=== PATIENT | male | born 1975 | race Caucasian/White ===

== ENCOUNTER 2017-05-27 02:51 | Inpatient (IN) | payer MEDICAID ==
[2017-05-27] MEDS ORDERED: NOREPINEPHRINE/NS 4 MG/500 ML BAG IV ONE (03:09)
[2017-05-27 03:10] LABS: ABSOLUTE NRBC COUNT 0.13 10^3/uL (0-0.01); ADD DIFF? YES; ADD SCAN? NO; ATYPICAL LYMPHOCYTE FLAG 50 (0-99); FRAGMENT RBC FLAG 0 (0-99); HEMATOCRIT 42.3 % (40.0-51.0); HEMOGLOBIN 13.4 g/dL (13.7-17.5); LEFT SHIFT FLG 80 (0-99); LIPEMIA HEMOLYSIS FLAG 80 (0-99); MEAN CELL HEMOGLOBIN 31.8 pg (27.9-34.1); MEAN CELL HEMOGLOBIN CONCENTR. 31.7 g/dL (32.4-36.7); MEAN CELL VOLUME 100.2 fL (81.5-99.8); MEAN PLATELET VOLUME 11.7 fL (8.7-11.7); PLATELET CLUMPS FLAG 0 (0-99); PLATELET COUNT 113 10^3/uL (150-400); RED BLOOD CELL COUNT 4.22 10^6/uL (4.40-6.38); RED CELL DISTRIBUTION WIDTH 19.5 % (11.5-15.2)
[2017-05-27] MEDS ORDERED: NOREPINEPHRINE 4 MG/4 ML INJ IV ONE (03:12)
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
[2017-05-27 03:21] LABS: NRBC-AUTO% 1.2 % (0.0-0.2)
[2017-05-27 03:22] LABS: ADD MORPH? NO; INR 1.73 (0.83-1.16); PROTIME(PATIENT) 20.3 SEC (12.0-15.0)
[2017-05-27 03:31] LABS: ANION GAP 19 mEq/L (8-16); CALCIUM 7.6 mg/dL (8.5-10.4); CARBON DIOXIDE 16 mEq/l (22-31); CHLORIDE 118 mEq/L (97-110); GLOMERULAR FILTRATION RATE > 60; GLUCOSE 101 mg/dL (70-100); POTASSIUM 4.6 mEq/L (3.5-5.2); SODIUM 153 mEq/L (134-144)
[2017-05-27 03:38] LABS: ETHANOL SERUM 379 mg/dL (0-10)
[2017-05-27 03:42] LABS: TROPONIN I 0.013 ng/mL (0-0.034)
[2017-05-27 03:49] LABS: BASE EXCESS -12.7 mEq/L (-2.5-2.5); BICARBONATE 15 mEq/L (22-26); MEASURED OXYGEN SATURATION 99 % (92-95); PCO2 41 mmHg (34-38); PO2 204 mmHg (65-75); TCO2 16 mEq/L (23-27)
[2017-05-27 03:50] LABS: O2 CONCENTRATIION 100 % (0-100); P/F RATIO 204 RATIO; PATIENT RATE 16; PIP 19; PRESSURE SUPPORT 7; SIMV YES
[2017-05-27] MEDS ORDERED: NA BICARBONATE 50 MEQ/50 ML VIAL ONE (03:53)
[2017-05-27] MEDS ORDERED: EPINEPHrine 1 MG/10 ML SYR IVP ONE ×3 (04:01→08:06)
[2017-05-27 04:02] LABS: ADD DIFF? YES; ADD MORPH? NO; ADD SCAN? NO; ATYPICAL LYMPHOCYTE FLAG 30 (0-99); FRAGMENT RBC FLAG 0 (0-99); HEMATOCRIT 30.7 % (40.0-51.0); HEMOGLOBIN 10.3 g/dL (13.7-17.5); LEFT SHIFT FLG 70 (0-99); LIPEMIA HEMOLYSIS FLAG 80 (0-99); MEAN CELL HEMOGLOBIN 32.3 pg (27.9-34.1); MEAN CELL HEMOGLOBIN CONCENTR. 33.6 g/dL (32.4-36.7); MEAN CELL VOLUME 96.2 fL (81.5-99.8); MEAN PLATELET VOLUME 11.7 fL (8.7-11.7); PLATELET CLUMPS FLAG 0 (0-99); PLATELET COUNT 89 10^3/uL (150-400); RED BLOOD CELL COUNT 3.19 10^6/uL (4.40-6.38); RED CELL DISTRIBUTION WIDTH 18.6 % (11.5-15.2)
[2017-05-27] MEDS ORDERED: SODIUM BICARBONATE 50 MEQ/50 ML SYR IVP ONE ×3 (04:02→04:04)
[2017-05-27] MEDS ORDERED: NOREPINEPHRINE/NS 500 ML IV ONE (04:04)
[2017-05-27 04:38] LABS: BASE EXCESS -8.8 mEq/L (-2.5-2.5); BICARBONATE 16 mEq/L (22-26); MEASURED OXYGEN SATURATION 99 % (92-95); PCO2 33 mmHg (34-38); PO2 150 mmHg (65-75); TCO2 17 mEq/L (23-27)
[2017-05-27 04:40] LABS: END TIDAL CO2 40; O2 CONCENTRATIION 85 % (0-100); P/F RATIO 176 RATIO; PATIENT RATE 16; PRESSURE SUPPORT 7; SIMV YES
--- NOTE | 2017-05-27 04:45 | CPEKG ---
Heart Rate: 112 RR Interval: 536 P-R Interval: 132 QRSD Interval: 92 QT Interval: 364 QTC Interval: 497 P [place]: 59 QRS [place]: 56 T Wave [place]: 45 EKG Severity - BORDERLINE ECG - EKG Impression: SINUS TACHYCARDIA EKG Impression: BORDERLINE PROLONGED QT INTERVAL Electronically Signed By: Isaiah Young 27-May-2017 04:48:56
[2017-05-27] MEDS ORDERED: PHYTONADIONE 10 MG in NS 50 ML IV ONE (04:49)
[2017-05-27] MEDS ORDERED: TRANEXAMIC ACID 1,000 MG in NS 100 ML IV ONE (04:51)
[2017-05-27] MEDS ORDERED: NALOXONE HCL 0.4 MG/ML INJ IVP PRN (04:52)
[2017-05-27] MEDS: VASOPRESSIN/DEXTROSE 250 ML IV SCH ×2 (05:00→17:39)
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
[2017-05-27] MEDS: D5W 1/2 NS W/ 20 KCl/L 1,000 ML IV SCH ×3 (05:17→23:38)
[2017-05-27 05:21] LABS: PLATELET ESTIMATE DECREASED (ADEQ)
[2017-05-27 05:24] LABS: POLYCHROMASIA 1+
[2017-05-27] MEDS ORDERED: NS 1,000 ML IV ONE ×3 (05:26→05:27)
[2017-05-27 05:32] LABS: PLATELET ESTIMATE DECREASED (ADEQ)
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
[2017-05-27 06:25] LABS: BASE EXCESS -8.9 mEq/L (-2.5-2.5); BICARBONATE 16 mEq/L (22-26); IONIZED CALCIUM 0.78 MMOL/L (1.12-1.30); MEASURED OXYGEN SATURATION 99 % (92-95); O2 CONCENTRATIION 85 % (0-100); P/F RATIO 199 RATIO; PCO2 30 mmHg (34-38); PO2 169 mmHg (65-75); SIMV YES; TCO2 17 mEq/L (23-27)
[2017-05-27 06:26] LABS: END TIDAL CO2 25; PATIENT RATE 16; PIP 18.6; PRESSURE SUPPORT 7
[2017-05-27 06:37] LABS: INR 2.34 (0.83-1.16); PROTIME(PATIENT) 25.9 SEC (12.0-15.0)
[2017-05-27 06:38] LABS: APTT 66.2 SEC (23.0-38.0)
[2017-05-27 06:39] LABS: ALANINE AMINOTRANSFERASE 176 IU/L (21-72); ALBUMIN 1.9 g/dL (3.5-5.0); ALKALINE PHOSPHATASE 85 IU/L (38-126); ANION GAP 15 mEq/L (8-16); ASPARTATE AMINOTRANSFERASE 314 IU/L (17-59); BILIRUBIN,TOTAL 1.1 mg/dL (0.1-1.4); CARBON DIOXIDE 16 mEq/l (22-31); CHLORIDE 120 mEq/L (97-110); CREATININE 1.1 mg/dL (0.7-1.3); GLOMERULAR FILTRATION RATE > 60; GLUCOSE 158 mg/dL (70-100); MAGNESIUM 1.7 mg/dL (1.6-2.3); POTASSIUM 4.4 mEq/L (3.5-5.2); SODIUM 151 mEq/L (134-144); TOTAL PROTEIN 3.9 g/dL (6.3-8.2)
[2017-05-27 06:43] LABS: CALCIUM 5.9 mg/dL (8.5-10.4)
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
[2017-05-27] MEDS: PHENYLEPHRINE HCL 50 MG in D5W 250 ML IV SCH ×4 (07:44→21:00)
[2017-05-27] MEDS ORDERED: SODIUM BICARBONATE 50 MEQ/50 ML SYR ONE (08:06)
[2017-05-27] MEDS ORDERED: CALCIUM GLUCONATE 2 GM in D5W 50 ML IV ONE (09:33)
--- NOTE | 2017-05-27 10:40 | SOAPPROG ---
SHAGUFTA Progress Note Assessment/Plan: Assessment: tried to call grandmother sixto tobin. left message for her to call ICU and speak with either me or Dr. Daily Plan: 05/27/17 10:39 Objective: Vital Signs Temp Pulse Resp BP Pulse Ox 36.1 C 123 H 16 109/63 100 05/27/17 09:00 05/27/17 10:00 05/27/17 10:00 05/27/17 10:00 05/27/17 10:00 Laboratory Results 05/27/17 08:55 05/27/17 06:10 05/26/17 05/27/17 05/28/17 05:59 05:59 05:59 Intake Total 3770 1332.5 Output Total 400 100 Balance 3370 1232.5 PT 25.9 SEC (12.0-15.0) H 05/27/17 06:10 INR 2.34 (0.83-1.16) H 05/27/17 06:10 ICD10 Worksheet Patient Problems: Problems Problem Status Onset Cardiopulmonary arrest Acute Head trauma Acute Neurogenic shock Acute Skull fracture Acute Traumatic subarachnoid hemorrhage Acute
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
--- NOTE | 2017-05-27 11:42 | GPN ---
[f rep st] PROCEDURE NOTE DATE OF PROCEDURE: 05/27/2017 NAME OF PROCEDURE: Right femoral arterial line placement. DESCRIPTION OF PROCEDURE: The patient was prepped and draped in the usual sterile fashion. A direc t stick was made in the right femoral artery. Guidewire was introduced. An arterial line catheter was passed over the guidewire and secured in place with silk suture and it was then connected to the monitor. /[id number]/MODL
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
[2017-05-27] MEDS: NOREPINEPHRINE/NS 500 ML IV SCH ×5 (11:52→23:38)
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
[2017-05-28] MEDS: NOREPINEPHRINE/NS 500 ML IV SCH ×3 (01:30→17:38)
[2017-05-28] MEDS: PHENYLEPHRINE HCL 50 MG in D5W 250 ML IV SCH (04:45)
[2017-05-28 05:19] LABS: ADD DIFF? YES; ADD MORPH? NO; ATYPICAL LYMPHOCYTE FLAG 0 (0-99); FRAGMENT RBC FLAG 30 (0-99); HEMATOCRIT 26.2 % (40.0-51.0); HEMOGLOBIN 9.1 g/dL (13.7-17.5); LEFT SHIFT FLG 50 (0-99); LIPEMIA HEMOLYSIS FLAG 90 (0-99); MEAN CELL HEMOGLOBIN 31.8 pg (27.9-34.1); MEAN CELL HEMOGLOBIN CONCENTR. 34.7 g/dL (32.4-36.7); MEAN CELL VOLUME 91.6 fL (81.5-99.8); MEAN PLATELET VOLUME 12.9 fL (8.7-11.7); PLATELET CLUMPS FLAG 0 (0-99); PLATELET COUNT 90 10^3/uL (150-400); RED BLOOD CELL COUNT 2.86 10^6/uL (4.40-6.38); RED CELL DISTRIBUTION WIDTH 19.7 % (11.5-15.2)
[2017-05-28 05:33] LABS: INR 2.53 (0.83-1.16); PROTIME(PATIENT) 27.5 SEC (12.0-15.0)
[2017-05-28 05:34] LABS: ALBUMIN 1.7 g/dL (3.5-5.0); ALKALINE PHOSPHATASE 83 IU/L (38-126); ANION GAP 6 mEq/L (8-16); APTT 36.1 SEC (23.0-38.0); CALCIUM 6.1 mg/dL (8.5-10.4); CARBON DIOXIDE 21 mEq/l (22-31); CHLORIDE 123 mEq/L (97-110); CREATININE 0.7 mg/dL (0.7-1.3); GLOMERULAR FILTRATION RATE > 60; GLUCOSE 134 mg/dL (70-100); MAGNESIUM 1.6 mg/dL (1.6-2.3); SODIUM 150 mEq/L (134-144); TOTAL PROTEIN 4.1 g/dL (6.3-8.2)
[2017-05-28 05:40] LABS: ADD SCAN? NO
[2017-05-28 05:45] LABS: ALANINE AMINOTRANSFERASE 1643 IU/L (21-72)
[2017-05-28 05:58] LABS: PLATELET ESTIMATE DECREASED (ADEQ)
[2017-05-28 05:59] LABS: HYPOCHROMIA 1+; KERATOCYTES 1+; POLYCHROMASIA 2+
[2017-05-28 06:05] LABS: ASPARTATE AMINOTRANSFERASE 3494 IU/L (17-59)
[2017-05-28 06:19] LABS: BILIRUBIN-CONJUGATED 1.6 mg/dL (0.0-0.5); BILIRUBIN-UNCONJUGATED 1.4 mg/dL (0.0-1.1)
[2017-05-28 07:49] LABS: BASE EXCESS -5.5 mEq/L (-2.5-2.5); BICARBONATE 19 mEq/L (22-26); MEASURED OXYGEN SATURATION 96 % (92-95); PCO2 30 mmHg (34-38); PO2 72 mmHg (65-75); TCO2 20 mEq/L (23-27)
[2017-05-28 07:50] LABS: O2 CONCENTRATIION 60 % (0-100); P/F RATIO 120 RATIO; SIMV YES
[2017-05-28 07:51] LABS: END TIDAL CO2 21; PATIENT RATE 12; PRESSURE SUPPORT 7
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
[2017-05-28] MEDS: PHENYLEPHRINE HCL IV SCH ×2 (08:38→17:37)
[2017-05-28] MEDS: D5W IV SCH ×2 (08:38→17:37)
[2017-05-28] MEDS: D5W 1/2 NS W/ 20 KCl/L 1,000 ML IV SCH ×2 (14:18→21:33)
[2017-05-28 14:49] LABS: CALCULATED OXYGEN SATURATION 100 % (92-95); O2 CONCENTRATIION 100 % (0-100)
--- NOTE | 2017-05-28 15:11 | PDINTPN ---
Commercial Manager Progress Note Assessment/Plan: Formal apnea test. This was performed at approximately 2:50 p.m.. The patient was pre oxygen aided with 100% FiO2 for 10 minutes. His temperature was 36 degrees. He was hemodynamically stable. He was removed from ventilatory support and a T-piece placed on the end of his endotracheal tube. 100% oxygen was delivered flow by. He remained hemodynamically stable throughout. Oxygen saturations were 97% or above throughout the test. Blood pressure dropped slightly towards the end of the test. At 10 minutes there was no evidence of any respiratory efforts and no evidence of any airflow from the patient's endotracheal tube. Arterial blood gas at the end showed a pH is 7.07, pCO2 of 72 and a PO2 of 82. This was compared to the blood gas prior to removal of ventilatory support. At that time the pH was 7.32, pCO2 40 and PO2 242 on 100% FiO2. Assessment: Positive apnea test indicating brain . Objective: Vital Signs Temp Pulse Resp BP Pulse Ox 36.3 C 94 12 93/46 L 99 05/28/17 14:25 05/28/17 14:25 05/28/17 14:25 05/28/17 14:25 05/28/17 14:25 Microbiology 05/28/17 08:30 - Final Sputum, Induced/Suctioned Laboratory Results 05/28/17 04:45 05/28/17 04:45 05/27/17 05/28/17 05/29/17 05:59 05:59 05:59 Intake Total 3770 9644.5 Output Total 400 2325 880 Balance 3370 7319.5 -880 PT 27.5 SEC (12.0-15.0) H 05/28/17 04:45 INR 2.53 (0.83-1.16) H 05/28/17 04:45 ICD10 Worksheet Patient Problems: Problems Problem Status Onset Cardiopulmonary arrest Acute Head trauma Acute Neurogenic shock Acute Skull fracture Acute Traumatic subarachnoid hemorrhage Acute
[2017-05-28 15:13] LABS: CALCULATED OXYGEN SATURATION 90 % (92-95); O2 CONCENTRATIION 98 % (0-100)
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
[2017-05-28] MEDS: VASOPRESSIN/DEXTROSE 250 ML IV SCH (16:50)
[2017-05-28] MEDS ORDERED: ALBUMIN 5% 500 ML IV ONE ×2 (17:40→18:00)
[2017-05-28] MEDS ORDERED: NS 1,000 ML IV ONE (17:41)
[2017-05-28] MEDS ORDERED: NS 1,000 ML IV PRN (17:41)
[2017-05-28] MEDS ORDERED: ALBUMIN 5% 500 ML BOTTLE IV ONE (17:43)
[2017-05-28] MEDS ORDERED: NS 500 ML IV PRN (17:45)
[2017-05-29 01:02] LABS: HEMATOCRIT 17.9 % (40.0-51.0); MEAN CELL HEMOGLOBIN 32.3 pg (27.9-34.1); MEAN CELL HEMOGLOBIN CONCENTR. 34.1 g/dL (32.4-36.7); MEAN CELL VOLUME 94.7 fL (81.5-99.8); RED BLOOD CELL COUNT 1.89 10^6/uL (4.40-6.38)
[2017-05-29 01:03] LABS: HEMOGLOBIN 6.1 g/dL (13.7-17.5)
[2017-05-29 01:04] LABS: RED CELL DISTRIBUTION WIDTH 20.2 % (11.5-15.2)
[2017-05-29 01:20] LABS: ALBUMIN 1.7 g/dL (3.5-5.0); ALKALINE PHOSPHATASE 60 IU/L (38-126); BILIRUBIN,TOTAL 2.3 mg/dL (0.1-1.4); BILIRUBIN-CONJUGATED 1.2 mg/dL (0.0-0.5); BILIRUBIN-UNCONJUGATED 1.1 mg/dL (0.0-1.1); MAGNESIUM 1.5 mg/dL (1.6-2.3); TOTAL PROTEIN 3.6 g/dL (6.3-8.2)
[2017-05-29 01:38] LABS: ALANINE AMINOTRANSFERASE 1057 IU/L (21-72); ASPARTATE AMINOTRANSFERASE 1625 IU/L (17-59)
[2017-05-29] MEDS ORDERED: PROTOCOL MAGNESIUM 1 DOSE IV PRN (01:39)
[2017-05-29] MEDS ORDERED: PROTOCOL CALCIUM 1 DOSE IV PRN (01:39)
[2017-05-29] MEDS ORDERED: PROTOCOL POTASSIUM 1 DOSE MISC PRN (01:39)
[2017-05-29] MEDS ORDERED: PROTOCOL K PHOSPHATE 1 DOSE IV PRN (01:39)
[2017-05-29 01:54] LABS: ANION GAP 5 mEq/L (8-16); CARBON DIOXIDE 20 mEq/l (22-31); CHLORIDE 124 mEq/L (97-110); CREATININE 0.6 mg/dL (0.7-1.3); GLOMERULAR FILTRATION RATE > 60; GLUCOSE 165 mg/dL (70-100); POTASSIUM 4.4 mEq/L (3.5-5.2); SODIUM 149 mEq/L (134-144)
[2017-05-29] MEDS ORDERED: CALCIUM GLUCONATE 2 GM in NS 50 ML IV ONE (02:12)
[2017-05-29] MEDS ORDERED: MAGNESIUM SULF 1 GM/DEXTROSE 100 ML IV ONE ×2 (02:12→06:16)
[2017-05-29] MEDS: PHENYLEPHRINE HCL IV SCH (02:46)
[2017-05-29] MEDS: D5W IV SCH (02:46)
[2017-05-29 03:50] LABS: HEMATOCRIT 22.2 % (40.0-51.0); HEMOGLOBIN 7.6 g/dL (13.7-17.5); LIPEMIA HEMOLYSIS FLAG 90 (0-99); MEAN CELL HEMOGLOBIN 32.1 pg (27.9-34.1); MEAN CELL HEMOGLOBIN CONCENTR. 34.2 g/dL (32.4-36.7); MEAN CELL VOLUME 93.7 fL (81.5-99.8); PLATELET CLUMPS FLAG 20 (0-99); PLATELET COUNT 42 10^3/uL (150-400); RED BLOOD CELL COUNT 2.37 10^6/uL (4.40-6.38); RED CELL DISTRIBUTION WIDTH 18.4 % (11.5-15.2)
[2017-05-29 04:28] LABS: PLATELET ESTIMATE DECREASED (ADEQ)
[2017-05-29] MEDS: D5W 1/2 NS W/ 20 KCl/L 1,000 ML IV SCH ×3 (04:28→17:24)
[2017-05-29] MEDS: VASOPRESSIN/DEXTROSE 250 ML IV SCH ×2 (04:28→14:05)
[2017-05-29 05:37] LABS: ANION GAP 6 mEq/L (8-16); CALCIUM 6.5 mg/dL (8.5-10.4); CARBON DIOXIDE 20 mEq/l (22-31); CHLORIDE 122 mEq/L (97-110); CREATININE 0.6 mg/dL (0.7-1.3); GLOMERULAR FILTRATION RATE > 60; GLUCOSE 165 mg/dL (70-100); MAGNESIUM 1.8 mg/dL (1.6-2.3); POTASSIUM 4.5 mEq/L (3.5-5.2); SODIUM 148 mEq/L (134-144)
[2017-05-29 05:58] LABS: IONIZED CALCIUM 0.98 MMOL/L (1.12-1.30)
[2017-05-29 06:00] LABS: PLATELET COUNT 77 10^3/uL (150-400)
[2017-05-29 06:12] VITALS: RESP 12
[2017-05-29] MEDS ORDERED: CALCIUM GLUCONATE 50 ML IV ONE (06:16)
[2017-05-29 06:19] LABS: INR 1.94 (0.83-1.16); PROTIME(PATIENT) 22.3 SEC (12.0-15.0)
[2017-05-29 06:20] LABS: APTT 33.7 SEC (23.0-38.0)
[2017-05-29 06:25] LABS: FIBRINOGEN 134 mg/dL (214-456)
[2017-05-29 07:36] LABS: ABSOLUTE NRBC COUNT 0.03 10^3/uL (0-0.01); ADD DIFF? YES; ADD MORPH? NO; ADD SCAN? NO; ATYPICAL LYMPHOCYTE FLAG 0 (0-99); FRAGMENT RBC FLAG 0 (0-99); HEMATOCRIT 23.6 % (40.0-51.0); LEFT SHIFT FLG 30 (0-99); LIPEMIA HEMOLYSIS FLAG 90 (0-99); MEAN CELL HEMOGLOBIN 31.7 pg (27.9-34.1); MEAN CELL HEMOGLOBIN CONCENTR. 33.9 g/dL (32.4-36.7); MEAN CELL VOLUME 93.7 fL (81.5-99.8); MEAN PLATELET VOLUME 12.3 fL (8.7-11.7); NRBC-AUTO% 0.1 % (0.0-0.2); PLATELET CLUMPS FLAG 0 (0-99); PLATELET COUNT 61 10^3/uL (150-400); RED BLOOD CELL COUNT 2.52 10^6/uL (4.40-6.38); RED CELL DISTRIBUTION WIDTH 17.6 % (11.5-15.2)
[2017-05-29 07:40] LABS: BASE EXCESS -5.1 mEq/L (-2.5-2.5); BICARBONATE 20 mEq/L (22-26); MEASURED OXYGEN SATURATION 99 % (92-95); PCO2 38 mmHg (34-38); PO2 117 mmHg (65-75); TCO2 21 mEq/L (23-27)
[2017-05-29 07:42] LABS: O2 CONCENTRATIION 100 % (0-100); P/F RATIO 117 RATIO; SIMV YES
[2017-05-29 08:35] LABS: PLATELET ESTIMATE DECREASED (ADEQ)
[2017-05-29 08:37] LABS: POLYCHROMASIA 1+
[2017-05-29 08:38] LABS: KERATOCYTES 1+; TOXIC GRANULATION PRESENT
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
[2017-05-29 10:06] LABS: HEMATOCRIT 23.2 % (40.0-51.0); MEAN CELL HEMOGLOBIN 32.1 pg (27.9-34.1); MEAN CELL HEMOGLOBIN CONCENTR. 34.5 g/dL (32.4-36.7); MEAN CELL VOLUME 93.2 fL (81.5-99.8); RED BLOOD CELL COUNT 2.49 10^6/uL (4.40-6.38); RED CELL DISTRIBUTION WIDTH 17.9 % (11.5-15.2)
[2017-05-29 10:20] LABS: INR 1.73 (0.83-1.16); PROTIME(PATIENT) 20.3 SEC (12.0-15.0)
[2017-05-29 11:53] LABS: POTASSIUM 4.4 mEq/L (3.5-5.2)
[2017-05-29] MEDS ORDERED: K PHOS 15 MMOL in D5W 250 ML IV ONE (12:00)
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
[2017-05-29 15:53] LABS: HEMATOCRIT 23.9 % (40.0-51.0); HEMOGLOBIN 8.2 g/dL (13.7-17.5); MEAN CELL HEMOGLOBIN CONCENTR. 34.3 g/dL (32.4-36.7); MEAN CELL VOLUME 93.4 fL (81.5-99.8); RED BLOOD CELL COUNT 2.56 10^6/uL (4.40-6.38); RED CELL DISTRIBUTION WIDTH 18.2 % (11.5-15.2)
[2017-05-29 17:05] VITALS: O2SAT 100
[2017-05-29 18:47] LABS: POTASSIUM 4.4 mEq/L (3.5-5.2)
[2017-05-29 21:12] VITALS: PULSE 73
[2017-05-29 21:13] VITALS: BP 139/74
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
[2017-05-29 22:13] VITALS: TEMP 98.4
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
== END 2017-05-29 22:52 | disposition expired | DRG 84 ==
LOC: EDBD 03:55 → EEVIPCON 03:55 → F2N 05:11
PROVIDERS: ADMIT Surgery; ATTEND Internal Medicine Pulmonary Disease
PROC: 5A12012 Performance of Cardiac Output, Single, Manual (ICD-10-PCS; principal; 2017-05-27)
PROC: 30233N1 Transfusion of Nonautologous Red Blood Cells into Peripheral Vein, Percutaneous Approach (ICD-10-PCS; principal; 2017-05-27)
PROC: 5A1945Z Respiratory Ventilation, 24-96 Consecutive Hours (ICD-10-PCS; principal; 2017-05-27)
PROC: 0BH18EZ Insertion of Endotracheal Airway into Trachea, Via Natural or Artificial Opening Endoscopic (ICD-10-PCS; principal; 2017-05-27)
PROC: 5A2204Z Restoration of Cardiac Rhythm, Single (ICD-10-PCS; principal; 2017-05-27)
PROC: 0HQ0XZZ Repair Scalp Skin, External Approach (ICD-10-PCS; 2017-05-27)
PROC: 02HV33Z Insertion of Infusion Device into Superior Vena Cava, Percutaneous Approach (ICD-10-PCS; 2017-05-27)
DX: I46.9 Cardiac arrest, cause unspecified; S02.19XA Other fracture of base of skull, initial encounter for closed fracture; S01.81XA Laceration without foreign body of other part of head, initial encounter; S01.311A Laceration without foreign body of right ear, initial encounter; R40.2432 Glasgow coma scale score 3-8, at arrival to emergency department; X58.XXXA Exposure to other specified factors, initial encounter; Y92.414 Local residential or business street as the place of occurrence of the external cause
CPT/HCPCS: 80305; 96374; G0480; J0610; J0690; J2370; J3430; J3475; L0172; P9016; P9017; P9021; P9035; P9041

== ENCOUNTER 2017-05-29 22:52 | Inpatient (IN) | payer OTHER ==
[2017-05-29] MEDS: D5W 1/2 NS W/ 20 KCl/L 1,000 ML IV SCH (23:00)
[2017-05-30] MEDS ORDERED: PHENYLEPHRINE HCL IV SCH (01:00)
[2017-05-30] MEDS ORDERED: D5W IV SCH (01:00)
[2017-05-30] MEDS ORDERED: VASOPRESSIN/DEXTROSE 250 ML IV SCH (01:00)
[2017-05-30] MEDS ORDERED: methylPREDNISolone SOD SUCC 2 GM in D5W 100 ML IV ONE (03:15)
[2017-05-30] MEDS ORDERED: VECURONIUM BROMIDE 10 MG VIAL IVP ONE (03:15)
[2017-05-30] MEDS ORDERED: NALOXONE HCL 4 MG/10 ML MDV IVP ONE (03:15)
[2017-05-30] MEDS ORDERED: LEVOTHYROXINE 100 MCG/5 ML SYR IVP ONE (03:15)
[2017-05-30] MEDS ORDERED: D50W 25 GM/50 ML SYR IVP ONE (03:15)
[2017-05-30] MEDS ORDERED: INSULIN REGULAR HUMAN 100 UNIT/ML IVP ONE (03:15)
[2017-05-30] MEDS ORDERED: NALOXONE HCL 2 MG/2 ML SYR IVP ONE (03:30)
[2017-05-30] MEDS: IPRATROPIUM/ALBUTEROL 3 ML DEYVIAL IH SCH ×6 (03:33→23:51)
[2017-05-30] MEDS: LEVOTHYROXINE 200 MCG in NS 500 ML IV SCH ×2 (04:15→11:32)
[2017-05-30 05:07] LABS: ABSOLUTE NRBC COUNT 0.02 10^3/uL (0-0.01); ADD DIFF? YES; ADD MORPH? NO; ADD SCAN? NO; ATYPICAL LYMPHOCYTE FLAG 0 (0-99); FRAGMENT RBC FLAG 0 (0-99); HEMATOCRIT 22.6 % (40.0-51.0); HEMOGLOBIN 7.6 g/dL (13.7-17.5); LEFT SHIFT FLG 30 (0-99); LIPEMIA HEMOLYSIS FLAG 80 (0-99); MEAN CELL HEMOGLOBIN 32.1 pg (27.9-34.1); MEAN CELL HEMOGLOBIN CONCENTR. 33.6 g/dL (32.4-36.7); MEAN CELL VOLUME 95.4 fL (81.5-99.8); MEAN PLATELET VOLUME 13.4 fL (8.7-11.7); NRBC-AUTO% 0.1 % (0.0-0.2); PLATELET CLUMPS FLAG 10 (0-99); RED BLOOD CELL COUNT 2.37 10^6/uL (4.40-6.38); RED CELL DISTRIBUTION WIDTH 18.4 % (11.5-15.2)
[2017-05-30] MEDS: PETROLAT,WHT/MIN OIL/SOD CHL 3.5 GM OPHT.OINT EACHEYE PRN ×2 (05:08→10:55)
[2017-05-30 05:12] LABS: PLATELET COUNT 47 10^3/uL (150-400)
[2017-05-30 05:14] LABS: COLOR AMBER; LEUKOCYTE ESTERASE,URINE NEGATIVE (NEGATIVE); NITRITE,URINE NEGATIVE (NEGATIVE)
[2017-05-30 05:20] LABS: ALANINE AMINOTRANSFERASE 742 IU/L (21-72); ALKALINE PHOSPHATASE 73 IU/L (38-126); AMYLASE 83 IU/L (30-110); ANION GAP 6 mEq/L (8-16); BILIRUBIN,TOTAL 2.1 mg/dL (0.1-1.4); BILIRUBIN-CONJUGATED 1.1 mg/dL (0.0-0.5); CALCIUM 6.7 mg/dL (8.5-10.4); CARBON DIOXIDE 20 mEq/l (22-31); CHLORIDE 119 mEq/L (97-110); CREATININE 0.6 mg/dL (0.7-1.3); GAMMA-GLUTAMYLTRANSFERASE 130 IU/L (10-59); GLOMERULAR FILTRATION RATE > 60; GLUCOSE 121 mg/dL (70-100); LACTATE DEHYDROGENASE 1304 IU/L (313-618); MAGNESIUM 1.9 mg/dL (1.6-2.3); POTASSIUM 4.1 mEq/L (3.5-5.2); SODIUM 145 mEq/L (134-144)
[2017-05-30 05:27] LABS: APTT 31.1 SEC (23.0-38.0); INR 1.73 (0.83-1.16); PROTIME(PATIENT) 20.3 SEC (12.0-15.0)
[2017-05-30 05:31] LABS: TROPONIN I 0.337 ng/mL (0-0.034)
[2017-05-30 05:39] LABS: ASPARTATE AMINOTRANSFERASE 803 IU/L (17-59)
[2017-05-30 05:47] LABS: KERATOCYTES 1+; POLYCHROMASIA 1+
[2017-05-30 05:48] LABS: PLATELET ESTIMATE DECREASED (ADEQ)
[2017-05-30 05:50] LABS: CK-MB INTERPRETATION NEGATIVE (NEGATIVE)
[2017-05-30] MEDS ORDERED: CALCIUM CHLORIDE 1 GM/10 ML INJ IV ONE (07:00)
[2017-05-30] MEDS ORDERED: NS IV ONE (07:00)
[2017-05-30] MEDS ORDERED: SODIUM PHOS IV ONE (07:00)
[2017-05-30 08:12] VITALS: RESP 16
[2017-05-30] MEDS ORDERED: DOPamine/DEXTROSE/250 ML BAG IV ONE (09:01)
--- NOTE | 2017-05-30 09:07 | CPEKG ---
Heart Rate: 77 RR Interval: 779 P-R Interval: 136 QRSD Interval: 86 QT Interval: 384 QTC Interval: 435 P [place]: 20 QRS [place]: 48 T Wave [place]: 87 EKG Severity - BORDERLINE ECG - EKG Impression: SINUS RHYTHM EKG Impression: BORDERLINE T WAVE ABNORMALITIES Electronically Signed By: Parish Choudhury 30-May-2017 10:04:37
--- NOTE | 2017-05-30 10:31 | SOAPPROG ---
SOAP Progress Note Assessment/Plan: Late Entry for time of procedure on 05/28/17 at 1538 Cold caloric test done with Dr Valladares that showed no eye movement after 50 cc of ice water instilled in External Auditory Canal. Paperwork filled out and signed at the time. See paper hardcopy signed by Dr Valladares. 05/30/17 10:28 Objective: Vital Signs Temp Pulse Resp BP Pulse Ox 36.9 C 75 16 117/63 99 05/30/17 10:00 05/30/17 10:00 05/30/17 10:00 05/30/17 10:00 05/30/17 10:00 Microbiology 05/30/17 03:55 - Final Sputum, Induced/Suctioned Laboratory Results 05/30/17 04:45 05/30/17 04:45 05/29/17 05/30/17 05/31/17 05:59 05:59 05:59 Intake Total 2386.9 350 Output Total 711 1075 Balance 1675.9 -725 PT 20.3 SEC (12.0-15.0) H 05/30/17 04:45 INR 1.73 (0.83-1.16) H 05/30/17 04:45 ICD10 Worksheet Patient Problems: Problems Problem Status Onset Cardiopulmonary arrest Acute Head trauma Acute Neurogenic shock Acute Skull fracture Acute Traumatic subarachnoid hemorrhage Acute
[2017-05-30] MEDS: methylPREDNISolone SOD SUCC 1 GM in D5W 100 ML IV SCH ×2 (11:09→19:21)
[2017-05-30 12:34] LABS: ABSOLUTE IMMATURE GRANULOCYTES 0.21 10^3/uL (0.00-0.10); ABSOLUTE NRBC COUNT 0.03 10^3/uL (0-0.01); ADD DIFF? NO; ADD MORPH? NO; ADD SCAN? NO; ATYPICAL LYMPHOCYTE FLAG 0 (0-99); FRAGMENT RBC FLAG 0 (0-99); HEMATOCRIT 25.5 % (40.0-51.0); HEMOGLOBIN 8.8 g/dL (13.7-17.5); LEFT SHIFT FLG 50 (0-99); LIPEMIA HEMOLYSIS FLAG 90 (0-99); MEAN CELL HEMOGLOBIN 32.1 pg (27.9-34.1); MEAN CELL HEMOGLOBIN CONCENTR. 34.5 g/dL (32.4-36.7); MEAN CELL VOLUME 93.1 fL (81.5-99.8); MEAN PLATELET VOLUME 13.6 fL (8.7-11.7); NRBC-AUTO% 0.3 % (0.0-0.2); PLATELET CLUMPS FLAG 0 (0-99); RED BLOOD CELL COUNT 2.74 10^6/uL (4.40-6.38); RED CELL DISTRIBUTION WIDTH 17.8 % (11.5-15.2)
[2017-05-30 12:36] LABS: PLATELET COUNT 41 10^3/uL (150-400)
[2017-05-30 12:41] LABS: APTT 30.3 SEC (23.0-38.0); INR 1.64 (0.83-1.16); PROTIME(PATIENT) 19.5 SEC (12.0-15.0)
[2017-05-30 12:55] LABS: ALANINE AMINOTRANSFERASE 697 IU/L (21-72); ALKALINE PHOSPHATASE 70 IU/L (38-126); ANION GAP 5 mEq/L (8-16); ASPARTATE AMINOTRANSFERASE 697 IU/L (17-59); BILIRUBIN,TOTAL 3.4 mg/dL (0.1-1.4); BILIRUBIN-CONJUGATED 1.5 mg/dL (0.0-0.5); BILIRUBIN-UNCONJUGATED 1.9 mg/dL (0.0-1.1); CALCIUM 8.4 mg/dL (8.5-10.4); CARBON DIOXIDE 20 mEq/l (22-31); CHLORIDE 122 mEq/L (97-110); CREATININE 0.6 mg/dL (0.7-1.3); GLOMERULAR FILTRATION RATE > 60; GLUCOSE 115 mg/dL (70-100); MAGNESIUM 1.8 mg/dL (1.6-2.3); POTASSIUM 4.7 mEq/L (3.5-5.2); SODIUM 147 mEq/L (134-144); TOTAL PROTEIN 4.3 g/dL (6.3-8.2)
--- NOTE | 2017-05-30 13:09 | ECHO ---
[id number] + + [address] : : [place] [address] : : [phone] + + Adult Echocardiographic Report + + :Name: MINH HAAS 1871Study Date: 05/30/2017 11:28 AM : : Hospital Admission Number: [id number] L ocation: 251: :: 1975 Gender: Male : :Age: 41 yrs Race: WH : :Reason For Study: Donor/Eval LV function : + + MMode/2D Measurements \T\ Calculations IVSd: 0.73 cm LVIDd: 5.0 cm FS: 39.7 % Ao root diam: LVPWd: 0.59 cm LVIDs: 3.0 cm EDV(Teich): 4.0 cm 117.7 ml LA dimension: ESV(Teich): 3.2 cm 35.3 ml EF(Teich): 70.0 % LVLd ap4: 9.0 cm SV(MOD-sp4): EDV(MOD-sp4): 77.0 ml 103.0 ml LVLs ap4: 6.7 cm ESV(MOD-sp4): 26.0 ml EF(MOD-sp4): 74.8 % Normal Measurement Values: + + :LVIDd (3.5-5.7cm) IVSd (0.6-1.1cm) LVPWd (0.6-1.1cm) Aortic Root (2.0-3.7cm)Left Atrium (1.5-4.0cm): :LV Vol(d) (76-115ml) LV Vol(s) (29-48ml) Ejec Fraction (50-65%)PV Bogdan (0.6- 1.2m/s) TV Bogdan (0.4-1.0m/s) : :MV E Bogdan (0.8-1.0m/s)MV A Bogdan (0.3-1.0m/s)LVOT Bogdan (0.7-1.2m/s) Asc Ao Bogdan ( 0.9-1.8m/s) : + + Doppler Measurements \T\ Calculations MV E max bogdan: 83.4 cm/sec Ao mean P.1 mmHg MV A max bogdan: 80.5 cm/sec Ao V2 mean: 83.4 cm/sec MV E/A: 1.0 Ao V2 VTI: 22.6 cm Left Ventricle The left ventricle is normal in size. There is normal left ventricular wall thickness. The left ventricle is hyperdynamic. Ejection Fraction = 70-75%. No regional wall motion abnormalities noted. Right Ventricle The right ventricle is normal in size and function. Atria The left atrial size is normal. Right atrial size is normal. The interatrial septum is intact with no evidence for an atrial septal defect. Mitral Valve The mitral valve is normal in structure and function. There is no evidence of mitral valve prolapse. There is no mitral valve stenosis. There is trace mitral regurgitation. Tricuspid Valve Normal tricuspid valve. There is trace tricuspid regurgitation. Aortic Valve The aortic valve is trileaflet. The aortic valve opens well. There is no aortic stenosis. There is no aortic insufficiency. Pulmonic Valve The pulmonic valve is not well visualized. There is no pulmonic valvular regurgitation. Great Vessels The aortic root is normal size. Pericardium/Pleural Question trace anterior pericadial effusion. Conclusion A complete two-dimensional transthoracic echocardiogram was performed (2D, M-mode, Doppler and color flow Doppler). The left ventricle is hyperdynamic. Ejection Fraction = 70-75%. There is trace mitral regurgitation. There is trace tricuspid regurgitation. Question trace anterior pericadial effusion. Final Reading Physician: Parish Choudhury, [place] signed on 05/30/2017 01:08 PM Ordering Physician: SKYLER DAVIS Performed By: Leslie Najera RDCS
[2017-05-30 13:38] LABS: PLATELET ESTIMATE DECREASED (ADEQ)
[2017-05-30] MEDS: levOFLOXACIN 500 MG/DEXTROSE 100 ML IV SCH (17:50)
[2017-05-30 18:29] LABS: % IMMATURE GRANULYOCYTES 2.2 % (0.0-1.1); ABSOLUTE IMMATURE GRANULOCYTES 0.25 10^3/uL (0.00-0.10); ABSOLUTE NRBC COUNT 0.02 10^3/uL (0-0.01); ADD DIFF? NO; ADD MORPH? NO; ADD SCAN? NO; ATYPICAL LYMPHOCYTE FLAG 0 (0-99); FRAGMENT RBC FLAG 0 (0-99); HEMATOCRIT 26.8 % (40.0-51.0); HEMOGLOBIN 9.2 g/dL (13.7-17.5); LEFT SHIFT FLG 80 (0-99); LIPEMIA HEMOLYSIS FLAG 90 (0-99); MEAN CELL HEMOGLOBIN 32.1 pg (27.9-34.1); MEAN CELL HEMOGLOBIN CONCENTR. 34.3 g/dL (32.4-36.7); MEAN CELL VOLUME 93.4 fL (81.5-99.8); MEAN PLATELET VOLUME 13.9 fL (8.7-11.7); NRBC-AUTO% 0.2 % (0.0-0.2); PLATELET CLUMPS FLAG 0 (0-99); RED BLOOD CELL COUNT 2.87 10^6/uL (4.40-6.38); RED CELL DISTRIBUTION WIDTH 18.1 % (11.5-15.2)
[2017-05-30 18:35] LABS: INR 1.64 (0.83-1.16); PROTIME(PATIENT) 19.5 SEC (12.0-15.0)
[2017-05-30 18:36] LABS: APTT 30.8 SEC (23.0-38.0)
[2017-05-30 18:40] LABS: PLATELET COUNT 40 10^3/uL (150-400)
[2017-05-30 18:45] LABS: ALANINE AMINOTRANSFERASE 678 IU/L (21-72); ALKALINE PHOSPHATASE 75 IU/L (38-126); ANION GAP 7 mEq/L (8-16); ASPARTATE AMINOTRANSFERASE 628 IU/L (17-59); BILIRUBIN-CONJUGATED 1.4 mg/dL (0.0-0.5); BILIRUBIN-UNCONJUGATED 1.6 mg/dL (0.0-1.1); CALCIUM 8.2 mg/dL (8.5-10.4); CARBON DIOXIDE 19 mEq/l (22-31); CHLORIDE 121 mEq/L (97-110); CREATININE 0.7 mg/dL (0.7-1.3); GLOMERULAR FILTRATION RATE > 60; GLUCOSE 144 mg/dL (70-100); MAGNESIUM 1.9 mg/dL (1.6-2.3); POTASSIUM 4.5 mEq/L (3.5-5.2); SODIUM 147 mEq/L (134-144); TOTAL PROTEIN 4.5 g/dL (6.3-8.2)
[2017-05-30 19:23] LABS: PLATELET ESTIMATE DECREASED (ADEQ)
[2017-05-30 20:34] LABS: AMYLASE 73 IU/L (30-110)
[2017-05-30 20:45] LABS: COLOR YELLOW; LEUKOCYTE ESTERASE,URINE NEGATIVE (NEGATIVE); NITRITE,URINE NEGATIVE (NEGATIVE)
[2017-05-30 20:47] LABS: CK-MB INTERPRETATION NEGATIVE (NEGATIVE); CREATINE KINASE-MB FRACTION 2.17 ng/mL (0-3.19); TROPONIN I 0.244 ng/mL (0-0.034)
[2017-05-30] MEDS ORDERED: MAGNESIUM SULF 2 GM/WATER 50 ML IV ONE (21:30)
[2017-05-31 00:32] LABS: % IMMATURE GRANULYOCYTES 0.8 % (0.0-1.1); ABSOLUTE IMMATURE GRANULOCYTES 0.11 10^3/uL (0.00-0.10); ADD DIFF? NO; ADD MORPH? NO; ADD SCAN? NO; ATYPICAL LYMPHOCYTE FLAG 10 (0-99); FRAGMENT RBC FLAG 0 (0-99); HEMATOCRIT 28.3 % (40.0-51.0); HEMOGLOBIN 9.8 g/dL (13.7-17.5); LEFT SHIFT FLG 60 (0-99); LIPEMIA HEMOLYSIS FLAG 90 (0-99); MEAN CELL HEMOGLOBIN 31.9 pg (27.9-34.1); MEAN CELL HEMOGLOBIN CONCENTR. 34.6 g/dL (32.4-36.7); MEAN CELL VOLUME 92.2 fL (81.5-99.8); MEAN PLATELET VOLUME 13.9 fL (8.7-11.7); PLATELET CLUMPS FLAG 10 (0-99); RED BLOOD CELL COUNT 3.07 10^6/uL (4.40-6.38)
[2017-05-31 00:37] LABS: PLATELET COUNT 42 10^3/uL (150-400)
[2017-05-31 00:49] LABS: ALANINE AMINOTRANSFERASE 614 IU/L (21-72); ALKALINE PHOSPHATASE 71 IU/L (38-126); ANION GAP 8 mEq/L (8-16); ASPARTATE AMINOTRANSFERASE 503 IU/L (17-59); BILIRUBIN,TOTAL 2.8 mg/dL (0.1-1.4); BILIRUBIN-CONJUGATED 1.3 mg/dL (0.0-0.5); BILIRUBIN-UNCONJUGATED 1.5 mg/dL (0.0-1.1); CALCIUM 8.3 mg/dL (8.5-10.4); CARBON DIOXIDE 20 mEq/l (22-31); CHLORIDE 123 mEq/L (97-110); CREATININE 0.7 mg/dL (0.7-1.3); GLOMERULAR FILTRATION RATE > 60; GLUCOSE 128 mg/dL (70-100); MAGNESIUM 2.5 mg/dL (1.6-2.3); POTASSIUM 4.3 mEq/L (3.5-5.2); SODIUM 151 mEq/L (134-144); TOTAL PROTEIN 4.4 g/dL (6.3-8.2)
[2017-05-31 01:02] LABS: INR 1.6 (0.83-1.16); PROTIME(PATIENT) 19.1 SEC (12.0-15.0)
[2017-05-31 01:03] LABS: APTT 30.9 SEC (23.0-38.0)
[2017-05-31 01:23] LABS: PLATELET ESTIMATE DECREASED (ADEQ)
[2017-05-31] MEDS: LEVOTHYROXINE 200 MCG in NS 500 ML IV SCH (03:21)
[2017-05-31] MEDS: methylPREDNISolone SOD SUCC 1 GM in D5W 100 ML IV SCH (03:21)
[2017-05-31] MEDS: PETROLAT,WHT/MIN OIL/SOD CHL 3.5 GM OPHT.OINT EACHEYE PRN (04:19)
[2017-05-31] MEDS: IPRATROPIUM/ALBUTEROL 3 ML DEYVIAL IH SCH ×2 (04:56→07:46)
[2017-05-31 06:14] VITALS: O2SAT 99
[2017-05-31 06:15] LABS: BASE EXCESS -2.3 mEq/L (-2.5-2.5); BICARBONATE 21 mEq/L (22-26); MEASURED OXYGEN SATURATION 99 % (92-95); PCO2 31 mmHg (34-38); PO2 145 mmHg (65-75); TCO2 22 mEq/L (23-27)
[2017-05-31 06:16] LABS: ASSIST CONTROL YES; END TIDAL CO2 28; O2 CONCENTRATIION 100 % (0-100); P/F RATIO 145 RATIO; TOTAL RATE 16
[2017-05-31 06:19] LABS: ABSOLUTE IMMATURE GRANULOCYTES 0.12 10^3/uL (0.00-0.10); ABSOLUTE NRBC COUNT 0.03 10^3/uL (0-0.01); ADD DIFF? NO; ADD MORPH? NO; ADD SCAN? NO; ATYPICAL LYMPHOCYTE FLAG 10 (0-99); FRAGMENT RBC FLAG 0 (0-99); HEMATOCRIT 27.9 % (40.0-51.0); HEMOGLOBIN 9.6 g/dL (13.7-17.5); LEFT SHIFT FLG 40 (0-99); LIPEMIA HEMOLYSIS FLAG 90 (0-99); MEAN CELL HEMOGLOBIN 31.7 pg (27.9-34.1); MEAN CELL HEMOGLOBIN CONCENTR. 34.4 g/dL (32.4-36.7); MEAN CELL VOLUME 92.1 fL (81.5-99.8); MEAN PLATELET VOLUME 12.4 fL (8.7-11.7); NRBC-AUTO% 0.3 % (0.0-0.2); PLATELET CLUMPS FLAG 10 (0-99); PLATELET COUNT 42 10^3/uL (150-400); RED BLOOD CELL COUNT 3.03 10^6/uL (4.40-6.38); RED CELL DISTRIBUTION WIDTH 18.5 % (11.5-15.2)
[2017-05-31 06:29] LABS: INR 1.63 (0.83-1.16); PROTIME(PATIENT) 19.4 SEC (12.0-15.0)
[2017-05-31 06:30] LABS: APTT 29.5 SEC (23.0-38.0)
[2017-05-31] MEDS: D5W 1/2 NS W/ 20 KCl/L 1,000 ML IV SCH (06:39)
[2017-05-31 06:41] LABS: PLATELET ESTIMATE DECREASED (ADEQ)
[2017-05-31 06:42] LABS: ALANINE AMINOTRANSFERASE 562 IU/L (21-72); ALBUMIN 2.1 g/dL (3.5-5.0); ALKALINE PHOSPHATASE 72 IU/L (38-126); ANION GAP 8 mEq/L (8-16); ASPARTATE AMINOTRANSFERASE 412 IU/L (17-59); BILIRUBIN,TOTAL 2.7 mg/dL (0.1-1.4); BILIRUBIN-CONJUGATED 1.4 mg/dL (0.0-0.5); BILIRUBIN-UNCONJUGATED 1.3 mg/dL (0.0-1.1); CALCIUM 8.1 mg/dL (8.5-10.4); CARBON DIOXIDE 20 mEq/l (22-31); CHLORIDE 125 mEq/L (97-110); CREATININE 0.7 mg/dL (0.7-1.3); GLOMERULAR FILTRATION RATE > 60; GLUCOSE 128 mg/dL (70-100); MAGNESIUM 2.5 mg/dL (1.6-2.3); POTASSIUM 4.5 mEq/L (3.5-5.2); SODIUM 153 mEq/L (134-144); TOTAL PROTEIN 4.3 g/dL (6.3-8.2)
[2017-05-31 08:32] LABS: AMYLASE 72 IU/L (30-110)
[2017-05-31 08:45] LABS: CK-MB INTERPRETATION NEGATIVE (NEGATIVE); CREATINE KINASE-MB FRACTION 1.27 ng/mL (0-3.19)
[2017-05-31 09:17] VITALS: TEMP 100
[2017-05-31 09:46] LABS: COLOR YELLOW; LEUKOCYTE ESTERASE,URINE NEGATIVE (NEGATIVE); NITRITE,URINE NEGATIVE (NEGATIVE)
[2017-05-31 10:01] VITALS: BP 126/66; PULSE 82
[2017-05-31] MEDS: levOFLOXACIN 500 MG/DEXTROSE 100 ML IV SCH (11:11)
== END 2017-05-31 11:06 | disposition expired | DRG 951 ==
LOC: EEVIPCON 22:52 → F2N 22:52
PROVIDERS: ADMIT Surgery; ATTEND Surgery
PROC: 30233N1 Transfusion of Nonautologous Red Blood Cells into Peripheral Vein, Percutaneous Approach (ICD-10-PCS; principal; 2017-05-29)
DX: Z52.89 Donor of other specified organs or tissues (principal)
CPT/HCPCS: J0690; J1265; J1815; J1956; J2310; J2370; J2930; P9016